=== PATIENT | male | born 1945 | race Caucasian/White ===

== ENCOUNTER → 2018-03-28 12:26 | Outpatient (CLI) | payer MEDICARE, SELFPAY | PROVIDERS: Family Provider Family Medicine; PCP Family Medicine; Visit Provider Nurse Practitioner Adult Health | DX: R35.0 Frequency of micturition (principal) | CPT/HCPCS: 87086; 87088 ==

== ENCOUNTER → 2018-04-16 06:45 | Outpatient (CLI) | payer MEDICARE, SELFPAY ==
--- NOTE | 2018-04-16 06:48 | CT_ITS ---
STUDY: CT ABDOMEN AND PELVIS WITH AND WITHOUT CONTRAST REASON FOR EXAM: Male, 73 years old. Gross hematuria. History of prostate cancer and prostatectomy. RADIATION DOSAGE (If Supplied By Facility): CTDIvol = ( 15.86 ) mGy, DLP = ( 2036.69 ) mGycm TECHNIQUE: Transaxial images were obtained from the dome of the diaphragm to the symphysis pubis without oral contrast. 100 ml of Isovue 300 contrast was administered. Sagittal and coronal images were reconstructed. Individualized dose optimization techniques were used for this CT. COMPARISON: None. FINDINGS: The visualized lung bases are unremarkable. The visualized portions of the heart are within normal limits. There is a 8.7 mm well-defined hypodensity in the region of the milka hepatis. This most likely represents a small hepatic cyst. A similar-appearing cyst measuring 1 cm is seen along the inferior medial portion of the right lobe of the liver. Normal gallbladder and extrahepatic biliary system. Normal spleen. Normal pancreas. Normal bilateral adrenal glands. Normal right kidney. 1 cm cyst in the lower pole of the left kidney. Normal visualized stomach. Normal small intestine. There are multiple colonic diverticula consistent with diverticulosis. The appendix is visualized and appears normal. There is scattered atherosclerotic calcification of the abdominal aorta, without a demonstrated aneurysm. Normal inferior vena cava. There is borderline retroperitoneal lymphadenopathy with enlarged nodes no greater than 10mm in the short axis diameter. Diffuse bladder wall thickening. There is a 4.3 cm x 3 cm calculus in the bladder. There is also evidence of a 2.6 cm x 1.3 cm calculus at the base of the bladder on the left side. Small bilateral inguinal hernias containing fat. Normal osseous structures. CT/CT Abd/Pelvis W/WO Contrast IMPRESSION: 2 large bladder calculi. Bladder wall. Electronically Signed: Pan Jacob MD at 13:41 EDT Tel [phone], Service support ,
[2018-04-16 07:01] LABS: CREATININE FINGERSTICK 0.8 mg/dL (0.70-1.30); EGFR FINGERSTICK > 60.0000 mL/min (>60)
== END ==
PROVIDERS: Family Provider Family Medicine; PCP Family Medicine; Visit Provider Nurse Practitioner Adult Health
DX: R31.0 Gross hematuria (principal); Z85.46 Personal history of malignant neoplasm of prostate
CPT/HCPCS: 74178; Q9967

== ENCOUNTER → 2018-04-19 17:01 | Outpatient (CLI) | payer MEDICARE, SELFPAY | PROVIDERS: Visit Provider Urology | DX: R30.0 Dysuria (principal); R35.0 Frequency of micturition | CPT/HCPCS: 87086; 87088 ==

== ENCOUNTER 2018-05-02 12:39 | Day surgery (SDC) | payer MEDICARE, SELFPAY ==
[2018-05-02 12:56] VITALS: BP 115/73; PULSE 59; RESP 16; TEMP 36.7; O2SAT 98; BMI 26.2
--- NOTE | 2018-05-02 14:25 | CALC_PTH ---
PATIENT: KELLY DE LA ROSA LOC: [facility] [place] U#:[id number] AGE/SX: 73/M ROOM: RE05/02/[address]: Dr. Eleno Bray MD : 1945 BED: DIS: 05/02/2018 SPEC #: [id number] RECD: 05/03/18 08:53 STATUS: EDI DAILY #: [id number] JOHN: 05/02/18 14:[address]: Eleno Bray DEPT: SURGICAL PATHOLOGY RECD BY: Nolan Hamm ENTERED: 05/03/18 09:36 SP TYPE: Calculi OTHR DR: Dr. Theron Mo MD Tissues: CALCULI Procedures: Surgery Specimen Level I HEADER OPERATION: Cysto, litholapaxy, laser PRE-OP DIAGNOSIS: Bladder stones TISSUE SUBMITTED: Stone fragments and foreign object from bladder GROSS DIAGNOSIS Fragments of stone and foreign body (gross only). SJ:joshua 05/03/18 GROSS DESCRIPTION Received in fixative is one container labeled with the patient's name and designated stone fragments and foreign object from bladder. The specimen consists of multiple fragments of stone measuring in aggregate 5 x 5 x 0.5 cm. Two plastic clips are also noted each measuring 1.2 x 0.3 x 0.2 cm. A few fragments also show blue dye discoloration. The specimen is for gross identification only. / SJ:joshua 05/03/18 CPT: 57849
[2018-05-02] MEDS: Cefazolin 2 GM in 0.9% Normal Saline 100 ML IV (15:45)
--- NOTE | 2018-05-02 18:27 | DCINST_ITS ---
Discharge Diet: Light diet - advance as tolerated Discharge Activity: Return to Normal Activity Call your doctor if your incision/area has: Continuous Slow Oozing, Sudden Increased Bleeding, Increased Pain/ Swelling, Increased Redness, Foul Smelling Discharge, Swelling at the incision site Call your doctor if you observe: Fever of 101 or Higher Catheter: Frost to leg bag Drain: [place] Allergies/Adverse Reactions: Allergies No Known Allergies Allergy (Verified 05/02/18 12:54) Medications to take at Discharge Pravastatin [Pravachol] 20 mg PO QHS 04/25/18 Primary Care Physician: Theron Mo MD [Primary Care Provider] - Test Results: Test results from this visit will be discussed in further detail at your follow- up appointment, if applicable. Please Follow Up With: Eleno Bray MD When: please call to make an appointment.
--- NOTE | 2018-05-02 18:30 | PCM.OPRPT ---
Report of Operation Date of Procedure: 05/02/18 Pre-Operative Diagnosis: Large bladder calculi multiple greater than 3 cm in size probably total of 5 cm stone Post-Operative Diagnosis: Same Surgery/Procedure Performed:: Cystolitholapaxy laser lithotripsy of stones in the bladder and also removal of foreign objects plastic clips from the bladder Description of Surgical Findings:: 73-year-old male who underwent a radical prostatectomy several years ago for prostate cancer came to my office for a follow-up visit. He had a radical prostatectomy at an outside hospital and he was having difficulties with bladder control pain and urgency so CAT scan was done that demonstrated very large stones within the bladder. Therefore we set the patient up for cystoscopy and transurethral laser in the left cystolitholapaxy and removal of these bladder stones he understands that hopefully this will not cause any problems with urinary control or incontinence as I will have to go past the sphincter. 73-year-old male taken back to the operating room after smooth induction of general anesthesia I went into the bladder with a 21 [place] rigid cystourethroscope the meatus somewhat tight at the dilated little bit but then I get the scope through and then I went all the way through the urethra the entire length the urethra is normal the bulbar urethra is normal the sphincter was intact went through the process I went through the sphincter area and immediately encountered a stone I then used 1000 ?m laser fiber and laser the stone and little tiny pieces as is lasering the stone the first I could see was attached to a plastic clip that had eroded into the bladder laser the stone completely and then and grabbed the clip with a grasper and pulled it out and released from the bladder wall and then the clip was removed I then went to the second stone and was a very large stone and lasered the stone the stone took an hour and a half the laser completely and then at the center of the stone was a clip a plastic clip, I remove this plastic clip laser of the stones low fragments and then removed all the fragments from the base of the bladder with Ellik evacuation. At the end of the case it took 2-1/2 hours laser out of the stones and left the catheter in to let the bladder heal up with the sphincter area heal up there was no injury or or damage to the sphincter of the bladder. Patient's anesthetic was reversed taken back to PACU in good condition and I will see him next week to get the catheter out. Type of Anesthesia:: General Drains: bhatt. - Admit VTE Documentation VTE Present on Admission: No VTE Mechan Device Prophylaxis: SCD's
[2018-05-02 18:39] VITALS: BP 115/73; BP 132/87; PULSE 70; RESP 16; TEMP 36.2; O2SAT 94
[2018-05-02 18:45] VITALS: BP 115/73; BP 129/85; PULSE 67; RESP 16; O2SAT 94
[2018-05-02 19:00] VITALS: BP 104/68; BP 115/73; PULSE 58; RESP 16; O2SAT 93
[2018-05-02 19:14] VITALS: BP 115/73; BP 138/86; PULSE 56; RESP 16; TEMP 36.1; O2SAT 94
[2018-05-02 19:43] VITALS: BP 115/73
== END 2018-05-02 19:50 | disposition home or self-care (01) ==
LOC: SDC 12:41 → AC 12:41
PROVIDERS: Family Provider Family Medicine; PCP Family Medicine; Visit Provider Urology
PROC: (CPT 52318; principal; 2018-05-02 14:15)
DX: N21.0 Calculus in bladder (principal); T19.1XXA Foreign body in bladder, initial encounter; E78.5 Hyperlipidemia, unspecified; Z85.46 Personal history of malignant neoplasm of prostate; Z85.048 Personal history of other malignant neoplasm of rectum, rectosigmoid junction, and anus; Z79.899 Other long term (current) drug therapy
CPT/HCPCS: 52318; 88300; J7120; J2405

== ENCOUNTER 2019-10-28 07:55 | Emergency (ER) | payer MEDICARE, SELFPAY ==
[2019-10-28 07:56] VITALS: BP 134/80; PULSE 68; RESP 21; TEMP 36.4; O2SAT 98; BMI 27.9
--- NOTE | 2019-10-28 08:15 | CT_ITS ---
STUDY: CT BRAIN WITHOUT CONTRAST REASON FOR EXAM: Male, 74 years old. DIZZINESS X2 DAYS, N/T BILAT UPPER ARMS -- CONTROLLED HTN -- PROSTATE CA W/ SURG ONLY RADIATION DOSAGE (If Supplied By Facility): CTDIvol = ( 44.99 ) mGy, DLP = ( 779.24 ) mGycm TECHNIQUE: Transaxial CT imaging of the brain was performed without administration of intravenous contrast material. Individualized dose optimization techniques were used for this CT. COMPARISON: No relevant priors. FINDINGS: Normal soft tissue structures. Normal calvarium. There is mild cerebral atrophy with widening of the extra-axial spaces and ventricular dilatation. Normal white matter tracts of the cerebral hemispheres. Normal basal ganglia and thalami. Normal brainstem. Normal cerebellum. There is no intracranial hemorrhage. There are no findings of an acute ischemic infarction. Atherosclerotic calcification of the cavernous portions of the internal carotid arteries bilaterally. Normal visualized paranasal sinuses. CT/Brain/Head without Contrast IMPRESSION: Chronic involutional changes of the brain. Electronically Signed: Pan Jacob, at 9:03 EST , Service support ,
--- NOTE | 2019-10-28 08:16 | EKG12_ITS ---
Test Reason : DIZZINESS Blood Pressure : / mmHG Vent. Rate : 059 BPM Atrial Rate : 059 BPM P-R Int : 148 ms QRS Dur : 104 ms QT Int : 430 ms P-R-T Axes : 014 -40 010 degrees QTc Int : 425 ms Sinus bradycardia Left axis deviation Abnormal ECG Confirmed by RENUKA JONES, XUAN ([id number]), newspaper editor managing TAE STEWARD ([id number]) on 10/30/2019 1:40:44 PM Referred By: Confirmed By:XUAN GRAYSON MD
--- NOTE | 2019-10-28 08:17 | ED.VIS.GEN ---
History of Present Illness Chief Complaint: Numb/Ting Narrative: Patient states 2 nights ago he woke during the night to urinate and felt that he was very off balance when he would walk to the bathroom. He states that he did not have any symptoms yesterday during the day but last night into this morning is been constant. He states that when he stands he feels he is going to fall to one side or the other. When he turns his head while laying from side to side his symptoms are exasperated. He feels better with his eyes closed. He notes chronic tinnitus. No recent injuries or infections. No change in vision. No muscle strength issues. He had nausea and some small diarrhea this morning. He has never had vertigo in the past. Past Medical History - Allergies and Home Meds Allergies/Adverse Reactions: Allergies No Known Allergies Allergy (Verified 05/02/18 12:54) Primary Care Physician: Theron Mo MD [Primary Care Provider] - 1 Week Rubén Valdez MD [STAFF PHYSICIAN] - (Call for appointment if you would like to follow-up with an ear nose and throat physician.) Smoking Status: Never smoker Review of Systems General: Denies: Chills, Fever, Sweats Eyes: Denies: Visual changes - bilaterally, Diplopia ENT: Denies: Rhinorrhea, Sore throat Cardiovascular: Denies: Chest pain, Palpitations Respiratory: Denies: Dyspnea, Cough, Dyspnea on exertion Gastrointestinal: Reports: Nausea, Diarrhea. Denies: Abdominal pain, Vomiting, Melena, Hematochezia Genitourinary: Denies: Dysuria, Hematuria, Frequency Musculoskeletal: Denies: Back pain, Extremity Pain Skin: Denies: Rash, Wounds Neurological: Reports: Headache, Parasthesia - BILATERAL UPPER EXTREMITIES, - - DIZZINESS. Denies: Weakness, Numbness Physical Exam Vital Signs/Narrative: Vital Signs Temp Pulse Resp BP Pulse Ox 10/28/19 07:56 97.5 F L 68 21 H 134/80 H 98 Inital Vital Signs reviewed: Yes General: Well nourished, Well developed, No Acute Distress Head: Normocephalic, Atraumatic Eyes: Perrl, EOMI, - - Specifically no nystagmus is noted ENT: Moist mucous membranes, No rhinorrhea Neck: Supple, Nontender Cardiovascular: Regular rate, Regular rhythm, No murmurs Respiratory: No distress, CTA bilaterally, Chest nontender Abdomen: Soft, Nontender, Nondistended, Normal bowel sounds Back: Nontender, Normal Inspection Extremities: Nontender, No edema Skin: Normal color, No rash Neurological: Alert, Oriented x3, Cranial nerves II-XII grossly intact, Normal Strength, Normal Sensation, - - Positive Darwin-Hallpike (no nystagmus noted only exacerbation of patients reported dizziness) Psychological: Normal affect, Normal Mood Diagnostic/Tx/Re-eval - Rhythm Strip Rate: 59 - SINUS BRADYCARDIA IRBB - Medical Decision Making CBC BMP essentially normal. Head CT negative. Patient received Zofran and Valium. Repeat examination he is feeling improved. He was ambulated in the department. Unfortunately he was unable to ambulate safely. Patient received an additional dose of Valium. Just before noon I ambulated him and he is feeling much better. Patient will be discharged home with follow-up. Prescription for Valium and Zofran. ED Disposition - Plan for ED Patient: Disposition: Home or Assisted Living Diagnosis: Vertigo Instructions: Benign Positional Vertigo Prescriptions: Diazepam [Valium] 2 mg PO TID PRN PRN #14 tab PRN Reason: Vertigo Prescription Printed Ondansetron [Zofran Odt] 4 mg PO Q8H PRN PRN #10 tab PRN Reason: Nausea Prescription Printed Referrals: Theron Mo MD [Primary Care Provider] - 1 Week Rubén Valdez MD [STAFF PHYSICIAN] - (Call for appointment if you would like to follow-up with an ear nose and throat physician.)
--- NOTE | 2019-10-28 08:24 | NURSING ---
NO OLD EKGS
[2019-10-28] MEDS: diazePAM 5 MG Tablet 2.5 MG PO ×2 (08:42→10:17)
[2019-10-28] MEDS: 0.9% Normal Saline 1,000 ML 1000 ML IV (08:42)
[2019-10-28] MEDS: Ondansetron 4 MG/2 ML Vial IV (08:42)
[2019-10-28 08:53] LABS: Absolute Lymphocyte Count 1.61 X10^3/uL (0.83-4.51); Basophil# 0.04 X10^3/uL; Basophil% 0.6 % (0-1); Eosinophil# 0.32 X10^3/uL; Hematocrit 47.4 % (40-54); Hemoglobin 15.7 g/dL (13.0-16.5); Lymphocyte # 1.61 X10^3/ul (4.0); Lymphocyte % 25.1 % (19-41); Mean Corp Hgb Conc 33.1 g/dL (32-36); Mean Corpuscular Hgb 28.1 pg (27.0-32.0); Mean Corpuscular Volume 84.9 fL (80-94); Mean Platelet Vol. 9.3 fl (6.2-12.0); Monocyte# 0.43 X10^3/uL; Monocyte% 6.7 % (0-10); NRBC Flagged by Analyzer 0 % (0-5); Neutrophil # 4.01 X10^3/uL (2.7-7.7); Neutrophil % 62.4 % (47-70); Platelet Count 245 K/mm3 (150-450); RBC Distribution Width CV 13.2 % (11.6-14.6); Red Blood Count 5.58 M/mm3 (4.6-6.2); White Blood Count 6.4 K/mm3 (4.4-11.0)
[2019-10-28 09:03] LABS: Anion Gap 7 (5-15); BUN 11 mg/dL (7-18); BUN/Creat Ratio 10.4 RATIO (10-20); Chloride 106 mmol/L (98-107); Creatinine, Serum 1.06 mg/dL (0.70-1.30); EST Glomerular Filtration Rate 73 mL/min (>60); Est Glom Filt Rate - Afr Amer 88 mL/min (>60); Estimated Creatinine Clearance 64.09 ml/min; Glucose 116 mg/dL (74-106); Potassium 3.7 mmol/L (3.5-5.1); Sodium Level 138 mmol/L (136-145)
[2019-10-28 10:10] VITALS: BP 122/84; PULSE 60; RESP 12; O2SAT 96
== END 2019-10-28 12:00 | disposition home or self-care (01) ==
PROVIDERS: Emergency Provider Emergency Medicine; PCP Family Medicine
DX: R42 Dizziness and giddiness (principal); H93.19 Tinnitus, unspecified ear; R19.7 Diarrhea, unspecified; R51 Headache; R20.2 Paresthesia of skin
CPT/HCPCS: 70450; 80048; 85025; 93005; 96361; 96374; 99284; J7030; A4216; J2405

== ENCOUNTER → 2021-01-12 15:24 | Outpatient (CLI) | payer MEDICARE, SELFPAY ==
--- NOTE | 2021-01-12 | MISC_PTH ---
PATIENT: KELLY DE LA ROSA LOC: [facility] U#:[id number] AGE/SX: 80/M ROOM: RE01/12/[address]: Dr. Rubén Valdez MD : 1945 BED: DIS: SPEC #: [id number] RECD: 01/13/21 07:34 STATUS: EDI ABIMBOLA #: [id number] JOHN: 01/12/21 00:[address]: Rubén Valdez DEPT: SURGICAL PATHOLOGY RECD BY: Yvan Tai ENTERED: 01/13/21 07:34 SP TYPE: MISC LAZARO DR: Dr. Theron Mo MD Tissues: Palate, NOS Procedures: Surgery Specimen Level IV HEADER OPERATION: Soft palate neoplasm PRE-OP DIAGNOSIS: Soft palate neoplasm TISSUE SUBMITTED: Soft palate neoplasm MICROSCOPIC DIAGNOSIS Soft palate neoplasm, biopsy: Squamous papilloma. AM:joshua 01/14/2021 MICROSCOPIC DESCRIPTION Slides are reviewed. GROSS DESCRIPTION Received in fixative is one container labeled with the patient's name and designated soft palate neoplasm. The specimen consists of a fragment of fontana soft tissue measuring 0.5 x 0.3 x 0.2 cm. A few minute fragments of fontana soft tissue are also noted measuring in aggregate 0.1 cm in greatest dimension. The specimen is totally submitted in one cassette. / SJ:joshua 01/13/21 TC:5 CPT: 74266
== END ==
PROVIDERS: PCP Family Medicine; Referring Provider Otolaryngology; Visit Provider Otolaryngology
DX: D49.0 Neoplasm of unspecified behavior of digestive system (principal)
CPT/HCPCS: 88305